=== PATIENT | female | born 1960 | race Caucasian/White ===

== ENCOUNTER → 2016-11-13 | Outpatient (CLI) | payer MEDICARE ==
--- NOTE | 2016-11-13 10:18 | KCIC ---
PROCEDURE Thyroid ultrasound. HISTORY Nodule. TECHNIQUE Thyroid ultrasound was performed. COMPARISON None at this institution. FINDINGS Right thyroid lobe measures 4.3 x 1.2 x 2.0 centimeters and the left 4.2 x 0.9 x 1.6 centimeters. Both lobes are heterogeneous but are without discrete lesion. Color flow to the thyroid does not appear increased or decreased. Mildly prominent lymph nodes are noted, largest is left submandibular measuring 2.0 x 2.0 x 1.0 centimeters. IMPRESSION 1. Heterogeneous thyroid without discrete nodule. 2. Mildly prominent lymph nodes along the cervical chains, largest is left submandibular. At the minimum, clinical follow up to resolution is suggested. Short-term follow-up ultrasound can be considered if warranted clinically. Electronically signed by: Hari Cortes MD (November 13, 2016 10:16:50)
== END | disposition home or self-care (01) ==
LOC: KCIC US 08:42
PROVIDERS: ATTEND Family Medicine
DX: E04.1 Nontoxic single thyroid nodule (principal)
CPT/HCPCS: 76536

== ENCOUNTER 2018-07-02 11:11 | Emergency (ER) | payer OTHER | END 2018-07-02 13:00 | disposition left against medical advice (07) | LOC: ER 11:11 | DX: R10.9 Unspecified abdominal pain (principal); Z53.21 Procedure and treatment not carried out due to patient leaving prior to being seen by health care provider ==

== ENCOUNTER → 2018-09-23 | Outpatient (CLI) | payer OTHER ==
--- NOTE | 2018-09-23 15:13 | KCIC ---
EXAM: Pelvic sonogram. HISTORY: Ovarian cyst on outside CT. TECHNIQUE: Transabdominal sonographic imaging of the pelvis was performed. The patient refused transvaginal imaging. COMPARISON: None. FINDINGS: The uterus measures 5.8 x 2.9 x 5.2 cm. The endometrial stripe measures 1.3 mm in thickness. There is a complex left ovarian cyst with internal echoes measuring 4.6 x 4.5 x 3.8 cm. The combination of this cyst and ovarian parenchyma measures 5.6 x 6.3 x 4.3 cm. The right ovary measures 2.7 x 2.8 x 2.0 cm. There is blood flow within both ovaries. There is no pelvic free fluid. IMPRESSION: 1. 4.6 cm left ovarian cyst with internal echoes. No solid lesion component is seen. Given the postmenopausal status of the patient, sonographic follow-up is recommended to exclude a cystic neoplasm. 2. Otherwise, unremarkable pelvic sonogram. The exam is limited due to the absence of transvaginal images. The patient deferred transvaginal imaging at this time. Electronically signed by: Anabel Rivero MD (09/23/2018 3:11 PM) [id number]
== END | disposition home or self-care (01) ==
LOC: KCIC US 12:16
PROVIDERS: ATTEND Family Medicine
DX: N83.292 Other ovarian cyst, left side (principal)
CPT/HCPCS: 76856

== ENCOUNTER → 2019-06-15 | Outpatient (CLI) | payer SELFPAY ==
--- NOTE | 2019-06-15 13:24 | KCIC ---
EXAM: Pelvic sonogram. HISTORY: Ovarian cyst follow-up. TECHNIQUE: Transabdominal and transvaginal sonographic imaging of the pelvis was performed. COMPARISON: 09/23/2018. FINDINGS: The uterus is retroverted and measures 4.7 x 3.6 x 4.2 cm. The endometrial stripe measures 2.2 mm in thickness. There is a 4.9 x 3.9 x 3.7 cm simple appearing left ovarian cyst. The surrounding left ovarian parenchyma demonstrates normal blood flow. The right ovary is normal in size and demonstrates normal blood flow. There is no pelvic free fluid. IMPRESSION: 1. 4.9 x 3.9 x 3.7 cm left ovarian cyst, previously measuring 4.6 x 4.5 x 3.8 cm. The overall volume of the cyst is not signally changed compared to prior exam. Continued follow-up is recommended in this postmenopausal female. 2. Retroverted uterus. Electronically signed by: Anabel Rivero MD (06/15/2019 1:22 PM) [email or web address]
== END | disposition home or self-care (01) ==
LOC: KCIC US 12:10
PROVIDERS: ATTEND Family Medicine
DX: N83.202 Unspecified ovarian cyst, left side (principal)
CPT/HCPCS: 76830; 76856